=== PATIENT | female | born 1990 | race Two or more races ===

== ENCOUNTER 2025-04-04 20:16 | Emergency (ER) | payer OTHER ==
[~2025-04-04] VITALS: Ht 167.6 cm; Wt 67.1 kg
[2025-04-04] MEDS ORDERED: ZESTRIL5 MG PO (20:37)
[2025-04-04] MEDS ORDERED: 0.9 % SODIUM CHLORIDE 1,000 ML IV ONE (21:15)
[2025-04-04] MEDS ORDERED: FAMOtidine 10 MG/ML (4ML VIAL) IV ONE (21:15)
[2025-04-04] MEDS ORDERED: ONDANSETRON HCL 2 MG/ML VIAL IV ONE (21:15)
[2025-04-04] MEDS ORDERED: KETOROLAC TROMETHAMINE 30 MG VIAL IV ONE (21:15)
[2025-04-04 21:45] LABS: BASO % 0.4 % (0.1-1.2); EOS # 0.05 (0.04-0.54); EOS % 0.4 % (0.7-7.0); LYMPH # 1.37 (1.18-3.74); LYMPH % 12.0 % (19.3-53.1); MEAN PLATELET VOLUME 10.70 fl (9.4-12.4); MONO # 0.35 (0.24-0.82); MONO % 3.1 % (4.7-12.5); NEUT # 9.52 (1.56-6.13); NEUT % 83.8 % (34.0-71.1); RED CELL DISTRIBUTION WIDTH 13.2 % (11.6-14.4)
[2025-04-04 22:17] LABS: COVID-19 AG NEGATIVE (NEGATIVE)
[2025-04-04 22:19] LABS: ALT/SGPT 13 U/L (12-78); AST/SGOT 23 U/L (15-37); BILIRUBIN TOTAL 0.51 mg/dL (0.3-1.2); BUN CREA RATIO 11 (7.0-25.0); CREATININE SERUM 0.62 mg/dL (0.55-1.02); GFR 108.91; GLOBULINA 4.5 G/DL (2.4-3.5); GLUCOSE FASTING 146 mg/dL (65-100); OSMOLALITY SERUM 282 MOSM/KG (275-295)
[2025-04-04 22:22] LABS: HCG QUANTITATIVE < 1 mUI/mL (1-3)
[2025-04-04] MEDS ORDERED: PEPCID AC20 MG PO (23:19)
[2025-04-04] MEDS ORDERED: ZOFRAN8 MG PO (23:19)
[2025-04-04] MEDS ORDERED: BUTALBIT-ACETA1 EACH PO (23:19)
[2025-04-04] MEDS ORDERED: AZITHROMYCIN500 MG PO (23:30)
== END 2025-04-05 00:04 | disposition home or self-care (01) ==
LOC: ER 23:58
PROVIDERS: General Practice
DX: R11.2 Nausea with vomiting, unspecified (principal); R51.9 Headache, unspecified; M35.00 Sjogren syndrome, unspecified; I10 Essential (primary) hypertension; M32.8 Other forms of systemic lupus erythematosus; Z20.822 Contact with and (suspected) exposure to COVID-19
CPT/HCPCS: 36415; 96365; 96366; 99284; J1885; J2405; J3490; J7030